=== PATIENT | female | born 1945 | race Caucasian/White ===

== ENCOUNTER → 2023-06-11 12:24 | Outpatient (REF) | payer MEDICARE, OTHER, SELFPAY | LOC: HWRAD 12:24 | PROVIDERS: ATTENDING PHYSICIAN Nurse Practitioner Family | DX: M81.0 Age-related osteoporosis without current pathological fracture (principal) | CPT/HCPCS: 77080 ==

== ENCOUNTER → 2023-06-11 12:51 | Outpatient (REF) | payer MEDICARE, OTHER, SELFPAY | LOC: HWRCS 12:51 | PROVIDERS: ATTENDING PHYSICIAN Nurse Practitioner Family | DX: I34.0 Nonrheumatic mitral (valve) insufficiency (principal) | CPT/HCPCS: 93306 ==

== ENCOUNTER → 2023-06-18 15:33 | Outpatient (REF) | payer MEDICARE, OTHER, SELFPAY | LOC: WDC 15:33 | PROVIDERS: ATTENDING PHYSICIAN Nurse Practitioner Family | DX: Z12.31 Encounter for screening mammogram for malignant neoplasm of breast (principal) | CPT/HCPCS: 77063; 77067 ==

== ENCOUNTER → 2025-02-19 15:54 | Outpatient (REF) | payer MEDICARE, OTHER, SELFPAY | LOC: MRI 3T 15:54 | PROVIDERS: ATTENDING PHYSICIAN Internal Medicine | DX: R41.3 Other amnesia (principal) | CPT/HCPCS: 70551 ==

== ENCOUNTER → 2025-03-05 10:53 | Outpatient (REF) | payer MEDICARE, OTHER, SELFPAY | LOC: RAD 10:53 | PROVIDERS: ATTENDING PHYSICIAN Internal Medicine | DX: R93.89 Abnormal findings on diagnostic imaging of other specified body structures (principal); I34.0 Nonrheumatic mitral (valve) insufficiency | CPT/HCPCS: 93880 ==

== ENCOUNTER → 2025-04-20 10:32 | Outpatient (REF) | payer MEDICARE, OTHER, SELFPAY | LOC: RAD 10:32 | PROVIDERS: ATTENDING PHYSICIAN Internal Medicine Geriatric Medicine; OTHER PHYSICIAN Internal Medicine | DX: M54.6 Pain in thoracic spine (principal); M81.0 Age-related osteoporosis without current pathological fracture; G47.09 Other insomnia; D72.819 Decreased white blood cell count, unspecified; E78.2 Mixed hyperlipidemia; E55.9 Vitamin D deficiency, unspecified; I34.0 Nonrheumatic mitral (valve) insufficiency; M85.80 Other specified disorders of bone density and structure, unspecified site; F33.41 Major depressive disorder, recurrent, in partial remission; I36.1 Nonrheumatic tricuspid (valve) insufficiency; Z13.89 Encounter for screening for other disorder; R41.3 Other amnesia | CPT/HCPCS: 72072; 72110 ==